=== PATIENT | male | born 1950 | race American Indian/Alaskan Native ===

== ENCOUNTER 2017-11-28 06:21 | Inpatient (IN) | payer BC, MEDICARE ==
[2017-11-28] MEDS ORDERED: Sodium Chloride 0.9% 20 ML IV ONE (07:00)
[2017-11-28] MEDS ORDERED: HEPARIN-NS 5,000 UNITS/500 ML 10,000 UNIT/1,000 ML BAG IV ONE (07:00)
[2017-11-28] MEDS ORDERED: Thrombin Topical 20,000 Intl Units Spray Kit TOP ONE (07:01)
[2017-11-28] MEDS ORDERED: Nitroglycerin 50mg in D5W 50 MG/250 ML BOTTLE IV ONE ×2 (07:32→07:44)
[2017-11-28] MEDS ORDERED: Remifentanil 1 mg/3 ml Vial IV ONE (07:45)
[2017-11-28] MEDS ORDERED: Lactated Ringer's 1,000 ML IV ONE ×3 (07:45→09:25)
[2017-11-28] MEDS ORDERED: Propofol 10 mg/ml Inj (20 ML) ONE (07:48)
[2017-11-28] MEDS ORDERED: Midazolam 2 MG/2 ML VIAL ONE (07:48)
[2017-11-28] MEDS ORDERED: Rocuronium 10 mg/ml (10 ml) ONE (07:49)
[2017-11-28] MEDS ORDERED: Phenylephrine 10 mg/ml Inj ONE (07:49)
[2017-11-28] MEDS ORDERED: ePHEDrine 50 mg/ml Inj ONE (07:49)
[2017-11-28] MEDS ORDERED: ceFAZolin 1 gm in NS 2 GM/200 ML BAG IVPB ONE (07:57)
[2017-11-28] MEDS ORDERED: Neostigmine Methylsulfate 3mg/3ml Syringe IV ONE (09:43)
--- NOTE | 2017-11-28 11:25 | PCM.SURG1 ---
Surgeon's Initial Post Op Note - Surgeon's Notes Surgeon: Dr. Sotelo Contract Design Agent: Dr. Rahman, PGY-3, Joe Mims MS3 Type of Anesthesia: General Endo Anesthesia Administered By: Dr. Mcnulty Pre-Operative Diagnosis: Right Carotid Stenosis Operative Findings: See operative report Post-Operative Diagnosis: Same Operation Performed: Right Carotid Endarterectomy with patch angioplasty Specimen/Specimens Removed: Plaque Estimated Blood Loss: EBL {In ML}: 250 Blood Products Given: N/A Drains Used: Renetta (Red rubber cath ) Post-Op Condition: Good Date of Surgery/Procedure: 11/28/17 Time of Surgery/Procedure: 11:24
[2017-11-28] MEDS ORDERED: Lactated Ringer's 1,000 ML IV PRN (11:26)
[2017-11-28] MEDS ORDERED: HYDROmorphone 0.5 mg/0.5 ml ISec IVP PRN (11:27)
[2017-11-28] MEDS ORDERED: Nitroglycerin 2% Ointment Foilpak UD TOP SCH (11:45)
[2017-11-28] MEDS: HYDROmorphone 0.5 mg/0.5 ml ISec IVP PRN ×2 (12:00→12:24)
[2017-11-28] MEDS ORDERED: Morphine 4 MG/ML VIAL IVP PRN (12:06)
--- NOTE | 2017-11-28 13:59 | CP.PCM.CON ---
<Adan Martinez - Last Filed: 11/28/17 14:57> History of Present Illness - History of Present Illness History of Present Illness: Critical Care Consult Note for Dr. Freeman Reason for consult: s/p Carotid Endarterectomy This is a 67 year old male with PMHx carotid stenosis who presented to the hospital for endarterectomy of the right carotid artery. Patient underwent Right Carotid Endarterectomy with patch angioplasty with 250 cc estimated blood loss. Patient was seen and examined at bedside in the ICU. He reports some discomfort at the site but otherwise has no complaints at this time. PMHx: Carotid stenosis PSHx: Left TKA in 2006, carotid endarterectomy Allergies: NKDA Social: Occasionally smokes a cigar. Occasional alcohol use. Denies drugs. 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 Family Hx: Denies PMD: Dr. Callejas Vascular: Dr. Sotelo Home meds: Plavix 75 mg PO daily, Lipitor 80 mg PO daily Review of Systems - Constitutional Constitutional: absent: Chills, Fever - EENT Eyes: absent: Change in Vision Ears: absent: Decreased Hearing Nose/Mouth/Throat: absent: Nasal Congestion - Cardiovascular Cardiovascular: absent: Chest Pain - Respiratory Respiratory: absent: Dyspnea - Gastrointestinal Gastrointestinal: absent: Abdominal Pain, Nausea, Vomiting - Genitourinary Genitourinary: absent: Dysuria - Musculoskeletal Musculoskeletal: Other (tenderness over the right side of the neck) - Integumentary Integumentary: absent: Rash - Neurological Neurological: absent: Dizziness, Headaches, Weakness - Psychiatric Psychiatric: absent: Anxiety - Endocrine Endocrine: absent: Palpitations Past Patient History - Past Medical History & Family History Past Medical History?: Yes - Past Social History Smoking Status: CIGARS - CARDIAC Hx Circulatory Problems: Yes (CAROTID STENOSIS RIGHT) Hx Hypercholesterolemia: Yes - PULMONARY Hx Respiratory Disorders: No - NEUROLOGICAL Hx Neurological Disorder: No - HEENT Hx HEENT Problems: Yes (GLASSES) - RENAL Hx Chronic Kidney Disease: No - ENDOCRINE/METABOLIC Hx Endocrine Disorders: No - HEMATOLOGICAL/ONCOLOGICAL Hx Blood Disorders: No - INTEGUMENTARY Hx Dermatological Problems: No - MUSCULOSKELETAL/RHEUMATOLOGICAL Hx Musculoskeletal Disorders: Yes Hx Degenerative Joint Disease: Yes - GASTROINTESTINAL Hx Gastrointestinal Disorders: No - GENITOURINARY/GYNECOLOGICAL Hx Genitourinary Disorders: No - PSYCHIATRIC Hx Psychophysiologic Disorder: No - SURGICAL HISTORY Hx Surgeries: Yes Hx Joint Replacement: Yes (KNEE 2006) - ANESTHESIA Hx Anesthesia: Yes Hx Anesthesia Reactions: Yes (SYNCOPE/vomiting) Hx Malignant Hyperthermia: No Has any member of the family had a problem w/ anesthesia?: (UNKNOWN) Meds Allergies/Adverse Reactions: Allergies Allergy/AdvReac Type Severity Reaction Status Date / Time No Known Allergies Allergy Verified 11/14/17 10:25 - Medications Medications: Current Medications Clopidogrel Bisulfate (Plavix) 75 mg PO DAILY [facility] Lactated Ringer's (Lactated Ringer's) 1,000 mls @ 100 mls/hr IV .Q10H PRN PRN Reason: Systolic Blood Pressure Stop: 11/29/17 11:27 Morphine Sulfate (Morphine) 4 mg IVP Q6H PRN PRN Reason: SEVERE 8-10 Nitroglycerin (Nitro-Bid 2% Oint) 1 ea TOP Q4H MELISSA Ondansetron HCl (Zofran Inj) 4 mg IVP Q6H PRN PRN Reason: Nausea/Vomiting Oxycodone/Acetaminophen (Percocet 5/325 Mg Tab) 1 tab PO Q4H PRN PRN Reason: Pain, moderate (4-7) Stop: 12/01/17 11:28 Rosuvastatin Calcium (Crestor) 20 mg PO HS [facility] Physical Exam - Constitutional Appears: No Acute Distress - Head Exam Head Exam: ATRAUMATIC, NORMOCEPHALIC - Eye Exam Eye Exam: EOMI, PERRL - ENT Exam ENT Exam: Mucous Membranes Moist - Neck Exam Additional comments: Neck dressing clean, dry, intact - Respiratory Exam Respiratory Exam: Clear to Auscultation Bilateral, NORMAL BREATHING PATTERN. absent: Rales, Rhonchi, Wheezes - Cardiovascular Exam Cardiovascular Exam: REGULAR RHYTHM, +S1, +S2 - GI/Abdominal Exam GI & Abdominal Exam: Normal Bowel Sounds, Soft. absent: Tenderness - Extremities Exam Extremities exam: Positive for: pedal pulses present. Negative for: pedal edema , tenderness - Neurological Exam Neurological exam: Alert, CN II-XII Intact, Oriented x3 - Psychiatric Exam Psychiatric exam: Normal Affect, Normal Mood - Skin Skin Exam: Dry, Warm Results - Vital Signs Recent Vital Signs: Last Vital Signs Temp 97.7 F 11/28/17 06:30 Pulse 76 11/28/17 06:30 Resp 18 11/28/17 06:30 BP 164/90 H 11/28/17 06:30 Pulse Ox 100 11/28/17 06:30 - Labs Labs: Laboratory Results - last 24 hr 11/28/17 07:05 Blood Type O POSITIVE Antibody Screen Negative Assessment & Plan - Assessment and Plan (Free Text) Assessment: This is a 67 year old male with PMHx carotid stenosis who presents for elective right carotid endarterectomy with patch angioplasty being monitored in the ICU post op. Neuro Awake, verbal Cardio Normotensive NSR on telemetry Plavix 75 mg daily Crestor 20 mg HS Keep patient between normotensive and 180 systolic BP Per surgery, Nitro paste if SBP>180 Per surgery, Lactated Ringers 100 cc/hr prn Hypotension Pulm Saturating well on nasal cannula GI Liquid diet Heme/onc Monitor H/H Monitor for bleeding Prophylaxis No VTE at this time due to post op SCDs Discussed with Dr. Freeman <Emile Freeman - Last Filed: 11/29/17 11:27> Meds - Medications Medications: Current Medications Clopidogrel Bisulfate (Plavix) 75 mg PO DAILY [facility] Nitroglycerin (Nitro-Bid 2% Oint) 1 ea TOP Q4H PRN PRN Reason: Systolic Blood Pressure Ondansetron HCl (Zofran Inj) 4 mg IVP Q6H PRN PRN Reason: Nausea/Vomiting Oxycodone/Acetaminophen (Percocet 5/325 Mg Tab) 1 tab PO Q4H PRN PRN Reason: Pain, moderate (4-7) Stop: 12/01/17 11:28 Last Admin: 11/28/17 18:48 Dose: 1 tab Rosuvastatin Calcium (Crestor) 20 mg PO HS [facility] Last Admin: 11/28/17 21:10 Dose: 20 mg Results - Vital Signs Recent Vital Signs: Last Vital Signs Temp 98.5 F 11/29/17 04:00 Pulse 63 11/29/17 07:01 Resp 12 11/29/17 07:01 BP 142/71 11/29/17 07:01 Pulse Ox 100 11/29/17 07:01 - Labs Result Diagrams: 11/29/17 06:11 11/29/17 06:11 Labs: Laboratory Results - last 24 hr 11/29/17 11/29/17 06:11 06:11 WBC 6.0 RBC 3.76 L Hgb 11.7 L D Hct 34.7 L MCV 92.3 MCH 31.1 H MCHC 33.7 RDW 14.8 H Plt Count 129 L D MPV 8.9 Neut % (Auto) 59.4 Lymph % (Auto) 28.4 [place] % (Auto) 10.9 H Eos % (Auto) 1.1 Baso % (Auto) 0.2 Neut # (Auto) 3.6 Lymph # (Auto) 1.7 [place] # (Auto) 0.7 Eos # (Auto) 0.1 Baso # (Auto) 0.0 Sodium 137 Potassium 3.6 Chloride 102 Carbon Dioxide 27 Anion Gap 12 BUN 6 L Creatinine 0.6 L Est GFR ( Amer) > 60 Est GFR (Non-Af Amer) > 60 Random Glucose 93 Calcium 8.4 L Phosphorus 3.8 Magnesium 1.9 Total Bilirubin 1.3 AST 28 ALT 32 Alkaline Phosphatase 55 Total Protein 6.1 L Albumin 3.1 L Globulin 2.9 Albumin/Globulin Ratio 1.1 Attending/Attestation - Attestation I have personally seen and examined this patient.: Yes I have fully participated in the care of the patient.: Yes I have reviewed all pertinent clinical information: Yes Notes (Text): Today: November The Patient was seen and examined at the bedside, Medical records reviewed, and management issues were discussed and formulated with the house staff. I have reviewed all the relevant clinical, laboratory, hemodynamic, radiographic data and medications Events reviewed Pain issues, skin care, head of the bed elevation, glycemic control were addressed. Agree with above resident's assessment and treatment plans of care as transcribed in Dr. Martinez note.
[2017-11-28] MEDS ORDERED: Nitroglycerin 2% Ointment Foilpak UD TOP PRN (15:53)
[2017-11-28] MEDS: Oxycodone/Acetaminophen 5/325 mg Tab PO PRN (18:48)
--- NOTE | 2017-11-28 19:42 | OP ---
PROCEDURE DATE: 11/28/2017 PREOPERATIVE DIAGNOSIS: Carotid stenosis. POSTOPERATIVE DIAGNOSIS: Carotid stenosis. PROCEDURE CARRIED OUT: Right carotid endarterectomy. SURGEON: Usman Sotelo Jr., MD CHAIR INSPECTOR: Dr. Rahman. ANESTHESIOLOGIST: Mr. Greenberg. INDICATIONS: A 67-year-old male, fairly good health, 80% stenosis right common carotid artery. OPERATIVE FINDINGS: The plaque was like a tooth, a molar, that was extending into the common carotid artery just below the bifurcation. At the end of the procedure, there was excellent flow in the internal carotid artery. There was a blood loss of 250 mL. DESCRIPTION OF PROCEDURE: The patient was given general anesthesia, intravenous antibiotics, Venodyne boots were applied. Exposure was made exposing the common internal and external carotid artery. The hypoglossal nerve was identified. After dissection of the vessels, heparin was given. The vessels were clamped and a [place] shunt was placed into the internal carotid artery. After this had been done, we carried out an endarterectomy but this was primarily an endarterectomy involving the carotid bifurcation barely extending into the internal carotid artery. After this had been done, we had clean endpoints, we placed multiple tacking sutures. We removed the shunt. We placed a bovine pericardial patch and sutured this into position. Blood loss for the procedure was 250 mL. The patient tolerated the procedure well and was awakened in a stable condition moving all fours. The operation carried out was a right carotid endarterectomy. Usman Sotelo Jr., MD Name, M.D. (Insert Co-signer name using "Ctrl + Shift + I" window. Delete the co-signature block if not applicable.) cc: Clay French MD
[2017-11-29 05:51] VITALS: BMI 26.0
[2017-11-29 06:19] LABS: BASO % 0.2 % (0.0-2.0); EOS # 0.1 K/uL (0.0-0.7); EOS % 1.1 % (0.0-4.0); HEMOGLOBIN 11.7 g/dL (12.0-18.0); LYMPH # 1.7 K/uL (1.0-4.3); LYMPH % 28.4 % (20.0-40.0); MEAN CELL VOLUME 92.3 fL (80.0-94.0); MEAN CORPUSCULAR HEMOGLOBIN 31.1 pg (27.0-31.0); MEAN CORPUSCULAR HGB CONC 33.7 g/dL (33.0-37.0); MEAN PLATELET VOLUME 8.9 fL (7.2-11.7); MONO # 0.7 K/uL (0.0-0.8); MONO % 10.9 % (0.0-10.0); NEUT # 3.6 K/uL (1.8-7.0); NEUT % 59.4 % (50.0-75.0); RBC 3.76 Mil/uL (4.40-5.90); RED CELL DISTRIBUTION WIDTH 14.8 % (11.5-14.5)
[2017-11-29 06:37] LABS: ALB/GLOB RATIO 1.1 (1.0-2.1); ALBUMIN 3.1 g/dL (3.5-5.0); ALT/SGPT 32 U/L (21-72); AST/SGOT 28 U/L (17-59); BLOOD UREA NITROGEN 6 mg/dL (9-20); CALCIUM 8.4 mg/dl (8.6-10.4); GFR AFRICAN-AMERICAN > 60; GFR NON-AFRICAN AMERICAN > 60
[2017-11-29] MEDS: Oxycodone/Acetaminophen 5/325 mg Tab PO PRN (07:30)
--- NOTE | 2017-11-29 11:16 | CP.PCM.DIS ---
Provider - Provider Date of Admission: 11/28/17 11:27 Attending physician: Usman Sotelo Jr, MD Time Spent in preparation of Discharge (in minutes): 5 Diagnosis - Discharge Diagnosis (1) Carotid arterial disease Status: Acute Priority: High Hospital Course - Lab Results Lab Results: Most Recent Lab Values WBC 6.0 K/uL (4.8-10.8) 11/29/17 06:11 RBC 3.76 Mil/uL (4.40-5.90) L 11/29/17 06:11 Hgb 11.7 g/dL (12.0-18.0) L D 11/29/17 06:11 Hct 34.7 % (35.0-51.0) L 11/29/17 06:11 MCV 92.3 fL (80.0-94.0) 11/29/17 06:11 MCH 31.1 pg (27.0-31.0) H 11/29/17 06:11 MCHC 33.7 g/dL (33.0-37.0) 11/29/17 06:11 RDW 14.8 % (11.5-14.5) H 11/29/17 06:11 Plt Count 129 K/uL (130-400) L D 11/29/17 06:11 MPV 8.9 fL (7.2-11.7) 11/29/17 06:11 Neut % (Auto) 59.4 % (50.0-75.0) 11/29/17 06:11 Lymph % (Auto) 28.4 % (20.0-40.0) 11/29/17 06:11 [place] % (Auto) 10.9 % (0.0-10.0) H 11/29/17 06:11 Eos % (Auto) 1.1 % (0.0-4.0) 11/29/17 06:11 Baso % (Auto) 0.2 % (0.0-2.0) 11/29/17 06:11 Neut # (Auto) 3.6 K/uL (1.8-7.0) 11/29/17 06:11 Lymph # (Auto) 1.7 K/uL (1.0-4.3) 11/29/17 06:11 [place] # (Auto) 0.7 K/uL (0.0-0.8) 11/29/17 06:11 Eos # (Auto) 0.1 K/uL (0.0-0.7) 11/29/17 06:11 Baso # (Auto) 0.0 K/uL (0.0-0.2) 11/29/17 06:11 Sodium 137 mmol/L (132-148) 11/29/17 06:11 Potassium 3.6 mmol/L (3.6-5.2) 11/29/17 06:11 Chloride 102 mmol/L (98-107) 11/29/17 06:11 Carbon Dioxide 27 mmol/L (22-30) 11/29/17 06:11 Anion Gap 12 (10-20) 11/29/17 06:11 BUN 6 mg/dL (9-20) L 11/29/17 06:11 Creatinine 0.6 mg/dL (0.8-1.5) L 11/29/17 06:11 Est GFR ( Amer) > 60 11/29/17 06:11 Est GFR (Non-Af Amer) > 60 11/29/17 06:11 Random Glucose 93 mg/dL (75-110) 11/29/17 06:11 Calcium 8.4 mg/dl (8.6-10.4) L 11/29/17 06:11 Phosphorus 3.8 mg/dL (2.5-4.5) 11/29/17 06:11 Magnesium 1.9 mg/dL (1.6-2.3) 11/29/17 06:11 Total Bilirubin 1.3 mg/dL (0.2-1.3) 11/29/17 06:11 AST 28 U/L (17-59) 11/29/17 06:11 ALT 32 U/L (21-72) 11/29/17 06:11 Alkaline Phosphatase 55 U/L (38-126) 11/29/17 06:11 Total Protein 6.1 g/dL (6.3-8.3) L 11/29/17 06:11 Albumin 3.1 g/dL (3.5-5.0) L 11/29/17 06:11 Globulin 2.9 gm/dL (2.2-3.9) 11/29/17 06:11 Albumin/Globulin Ratio 1.1 (1.0-2.1) 11/29/17 06:11 Blood Type O POSITIVE 11/28/17 07:05 Antibody Screen Negative 11/28/17 07:05 - Hospital Course Hospital Course: 67M with R common carotid artery stenosis who presented for elective carotid endarterectomy on 11/28/17. Pt was taken to OR for R CEA, he tolerated the procedure well and was monitored in the ICU post-op. This morning POD#1 pt is doing well, with no complaints. Pain is well controlled and pt is neurologically intact. Pt will be DC home with f/u output with Dr. Sotelo as well as PMD & Cardio. Discharge Exam - Head Exam Head Exam: ATRAUMATIC, NORMOCEPHALIC - ENT Exam ENT Exam: Mucous Membranes Moist - Neck Exam Additional comments: R neck incision C/D/I with steristrips in place, no hematoma noted - Respiratory Exam Respiratory Exam: NORMAL BREATHING PATTERN - Cardiovascular Exam Cardiovascular Exam: RRR - GI/Abdominal Exam GI & Abdominal Exam: Soft. absent: Tenderness - Neurological Exam Neurological exam: Alert, CN II-XII Intact, Oriented x3 - Skin Skin Exam: Dry, Warm Discharge Plan - Follow Up Plan Condition: GOOD Disposition: HOME/ ROUTINE
[2017-11-29] MEDS ORDERED: Pneumococcal 23-Valent Vaccine IM ONE (11:20)
--- NOTE | 2017-11-29 11:26 | CP.CCUPN ---
<Adan Martinez - Last Filed: 11/29/17 11:22> CCU Subjective - Physician Review Subjective (Free Text): 11/29/17 11:22 Patient seen and examined. Patient reports no acute complaints this morning and requests advancement of diet. No acute events overnight noted. CCU Objective - Vital Signs / Intake & Output Intake and Output (Last 8hrs): Intake & Output 11/28/17 11/29/17 11/29/17 22:59 06:59 14:59 Intake Total 490 Output Total 1150 1250 0 Balance -660 -1250 0 Weight 176 lb 5.917 oz Intake: Oral 490 Output: Urine 1150 1250 0 Urethral (Gonzales) 1150 1250 0 Other: # Voids Urethral (Gonzales) 1 2 - Physical Exam Head: Positive for: Atraumatic, Normocephalic Pupils: Positive for: PERRL Extroacular Muscles: Positive for: EOMI Conjunctiva: Positive for: Normal Mouth: Positive for: Moist Mucous Membranes Neck: Positive for: Other (dressing clean, dry, intact) Respiratory/Chest: Positive for: Clear to Auscultation. Negative for: Accessory Muscle Use, Wheezes, Rales, Rhonchi Cardiovascular: Positive for: Regular Rate and Rhythm, Normal S1, S2 Abdomen: Positive for: Tenderness, Normal Bowel Sounds. Negative for: Distention Upper Extremity: Positive for: Normal Inspection Lower Extremity: Positive for: Normal Inspection Neurological: Positive for: GCS=15 Skin: Positive for: Warm, Dry Psychiatric: Positive for: Alert, Oriented x 3 - Medications Active Medications: Active Medications Generic Name Dose Route Start Last Admin Trade Name Freq PRN Reason Stop Dose Admin Clopidogrel Bisulfate 75 mg 11/29/17 10:00 Plavix PO DAILY MELISSA Nitroglycerin 1 ea 11/28/17 15:53 Nitro-Bid 2% Oint TOP Q4H PRN Systolic Blood Pressure Ondansetron HCl 4 mg 11/28/17 11:27 Zofran Inj IVP Q6H PRN Nausea/Vomiting Oxycodone/Acetaminophen 1 tab 11/28/17 11:27 11/28/17 18:48 Percocet 5/325 Mg Tab PO 12/01/17 11:28 1 tab Q4H PRN Administration Pain, moderate (4-7) Rosuvastatin Calcium 20 mg 11/28/17 22:00 11/28/17 21:10 Crestor PO 20 mg HS MELISSA Administration - Patient Studies Lab Studies: Lab Studies 11/29/17 11/29/17 Range/Units 06:11 06:11 WBC 6.0 (4.8-10.8) K/uL RBC 3.76 L (4.40-5.90) Mil/uL Hgb 11.7 L D (12.0-18.0) g/dL Hct 34.7 L (35.0-51.0) % MCV 92.3 (80.0-94.0) fL MCH 31.1 H (27.0-31.0) pg MCHC 33.7 (33.0-37.0) g/dL RDW 14.8 H (11.5-14.5) % Plt Count 129 L D (130-400) K/uL MPV 8.9 (7.2-11.7) fL Neut % (Auto) 59.4 (50.0-75.0) % Lymph % (Auto) 28.4 (20.0-40.0) % [place] % (Auto) 10.9 H (0.0-10.0) % Eos % (Auto) 1.1 (0.0-4.0) % Baso % (Auto) 0.2 (0.0-2.0) % Neut # (Auto) 3.6 (1.8-7.0) K/uL Lymph # (Auto) 1.7 (1.0-4.3) K/uL [place] # (Auto) 0.7 (0.0-0.8) K/uL Eos # (Auto) 0.1 (0.0-0.7) K/uL Baso # (Auto) 0.0 (0.0-0.2) K/uL Sodium 137 (132-148) mmol/L Potassium 3.6 (3.6-5.2) mmol/L Chloride 102 (98-107) mmol/L Carbon Dioxide 27 (22-30) mmol/L Anion Gap 12 (10-20) BUN 6 L (9-20) mg/dL Creatinine 0.6 L (0.8-1.5) mg/dL Est GFR ( Amer) > 60 Est GFR (Non-Af Amer) > 60 Random Glucose 93 (75-110) mg/dL Calcium 8.4 L (8.6-10.4) mg/dl Phosphorus 3.8 (2.5-4.5) mg/dL Magnesium 1.9 (1.6-2.3) mg/dL Total Bilirubin 1.3 (0.2-1.3) mg/dL AST 28 (17-59) U/L ALT 32 (21-72) U/L Alkaline Phosphatase 55 (38-126) U/L Total Protein 6.1 L (6.3-8.3) g/dL Albumin 3.1 L (3.5-5.0) g/dL Globulin 2.9 (2.2-3.9) gm/dL Albumin/Globulin Ratio 1.1 (1.0-2.1) Laboratory Results - last 24 hr 11/29/17 11/29/17 06:11 06:11 WBC 6.0 RBC 3.76 L Hgb 11.7 L D Hct 34.7 L MCV 92.3 MCH 31.1 H MCHC 33.7 RDW 14.8 H Plt Count 129 L D MPV 8.9 Neut % (Auto) 59.4 Lymph % (Auto) 28.4 [place] % (Auto) 10.9 H Eos % (Auto) 1.1 Baso % (Auto) 0.2 Neut # (Auto) 3.6 Lymph # (Auto) 1.7 [place] # (Auto) 0.7 Eos # (Auto) 0.1 Baso # (Auto) 0.0 Sodium 137 Potassium 3.6 Chloride 102 Carbon Dioxide 27 Anion Gap 12 BUN 6 L Creatinine 0.6 L Est GFR ( Amer) > 60 Est GFR (Non-Af Amer) > 60 Random Glucose 93 Calcium 8.4 L Phosphorus 3.8 Magnesium 1.9 Total Bilirubin 1.3 AST 28 ALT 32 Alkaline Phosphatase 55 Total Protein 6.1 L Albumin 3.1 L Globulin 2.9 Albumin/Globulin Ratio 1.1 Critical Care Progress Note - Nutrition Nutrition: Nutrition Category Date Time Status Regular Diet [DIET] Diets 11/29/17 Lunch Active Assessment/Plan - Assessment and Plan (Free Text) Assessment: This is a 67 year old male with PMHx carotid stenosis who presents for elective right carotid endarterectomy with patch angioplasty being monitored in the ICU post op. Patient deemed stable for discharge today per vascular surgery. Neuro Awake, verbal Cardio Normotensive NSR on telemetry Plavix 75 mg daily Crestor 20 mg HS Keep patient between normotensive and 180 systolic BP Per surgery, Nitro paste if SBP>180 Per surgery, Lactated Ringers 100 cc/hr prn Hypotension Pulm Saturating well on nasal cannula GI Advanced by surgery to regular diet Heme/onc Monitor H/H Monitor for bleeding Prophylaxis No VTE at this time due to post op SCDs Disposition: Patient is cleared for discharge from vascular surgery standpoint. His Arterial line will be removed. Discussed with Dr. Freeman <Emile Freeman - Last Filed: 11/29/17 12:22> CCU Objective - Vital Signs / Intake & Output Intake and Output (Last 8hrs): Intake & Output 11/28/17 11/29/17 11/29/17 22:59 06:59 14:59 Intake Total 490 Output Total 1150 1250 0 Balance -660 -1250 0 Weight 176 lb 5.917 oz Intake: Oral 490 Output: Urine 1150 1250 0 Urethral (Gonzales) 1150 1250 0 Other: # Voids Urethral (Gonzales) 1 2 - Medications Active Medications: Active Medications Generic Name Dose Route Start Last Admin Trade Name Freq PRN Reason Stop Dose Admin Clopidogrel Bisulfate 75 mg 11/29/17 10:00 Plavix PO DAILY MELISSA Nitroglycerin 1 ea 11/28/17 15:53 Nitro-Bid 2% Oint TOP Q4H PRN Systolic Blood Pressure Ondansetron HCl 4 mg 11/28/17 11:27 Zofran Inj IVP Q6H PRN Nausea/Vomiting Oxycodone/Acetaminophen 1 tab 11/28/17 11:27 11/28/17 18:48 Percocet 5/325 Mg Tab PO 12/01/17 11:28 1 tab Q4H PRN Administration Pain, moderate (4-7) Rosuvastatin Calcium 20 mg 11/28/17 22:00 11/28/17 21:10 Crestor PO 20 mg HS MELISSA Administration - Patient Studies Lab Studies: Lab Studies 11/29/17 11/29/17 Range/Units 06:11 06:11 WBC 6.0 (4.8-10.8) K/uL RBC 3.76 L (4.40-5.90) Mil/uL Hgb 11.7 L D (12.0-18.0) g/dL Hct 34.7 L (35.0-51.0) % MCV 92.3 (80.0-94.0) fL MCH 31.1 H (27.0-31.0) pg MCHC 33.7 (33.0-37.0) g/dL RDW 14.8 H (11.5-14.5) % Plt Count 129 L D (130-400) K/uL MPV 8.9 (7.2-11.7) fL Neut % (Auto) 59.4 (50.0-75.0) % Lymph % (Auto) 28.4 (20.0-40.0) % [place] % (Auto) 10.9 H (0.0-10.0) % Eos % (Auto) 1.1 (0.0-4.0) % Baso % (Auto) 0.2 (0.0-2.0) % Neut # (Auto) 3.6 (1.8-7.0) K/uL Lymph # (Auto) 1.7 (1.0-4.3) K/uL [place] # (Auto) 0.7 (0.0-0.8) K/uL Eos # (Auto) 0.1 (0.0-0.7) K/uL Baso # (Auto) 0.0 (0.0-0.2) K/uL Sodium 137 (132-148) mmol/L Potassium 3.6 (3.6-5.2) mmol/L Chloride 102 (98-107) mmol/L Carbon Dioxide 27 (22-30) mmol/L Anion Gap 12 (10-20) BUN 6 L (9-20) mg/dL Creatinine 0.6 L (0.8-1.5) mg/dL Est GFR ( Amer) > 60 Est GFR (Non-Af Amer) > 60 Random Glucose 93 (75-110) mg/dL Calcium 8.4 L (8.6-10.4) mg/dl Phosphorus 3.8 (2.5-4.5) mg/dL Magnesium 1.9 (1.6-2.3) mg/dL Total Bilirubin 1.3 (0.2-1.3) mg/dL AST 28 (17-59) U/L ALT 32 (21-72) U/L Alkaline Phosphatase 55 (38-126) U/L Total Protein 6.1 L (6.3-8.3) g/dL Albumin 3.1 L (3.5-5.0) g/dL Globulin 2.9 (2.2-3.9) gm/dL Albumin/Globulin Ratio 1.1 (1.0-2.1) Laboratory Results - last 24 hr 11/29/17 11/29/17 06:11 06:11 WBC 6.0 RBC 3.76 L Hgb 11.7 L D Hct 34.7 L MCV 92.3 MCH 31.1 H MCHC 33.7 RDW 14.8 H Plt Count 129 L D MPV 8.9 Neut % (Auto) 59.4 Lymph % (Auto) 28.4 [place] % (Auto) 10.9 H Eos % (Auto) 1.1 Baso % (Auto) 0.2 Neut # (Auto) 3.6 Lymph # (Auto) 1.7 [place] # (Auto) 0.7 Eos # (Auto) 0.1 Baso # (Auto) 0.0 Sodium 137 Potassium 3.6 Chloride 102 Carbon Dioxide 27 Anion Gap 12 BUN 6 L Creatinine 0.6 L Est GFR ( Amer) > 60 Est GFR (Non-Af Amer) > 60 Random Glucose 93 Calcium 8.4 L Phosphorus 3.8 Magnesium 1.9 Total Bilirubin 1.3 AST 28 ALT 32 Alkaline Phosphatase 55 Total Protein 6.1 L Albumin 3.1 L Globulin 2.9 Albumin/Globulin Ratio 1.1 Critical Care Progress Note - Nutrition Nutrition: Nutrition Category Date Time Status Regular Diet [DIET] Diets 11/29/17 Lunch Active Attending/Attestation - Attestation I have personally seen and examined this patient.: Yes I have fully participated in the care of the patient.: Yes I have reviewed all pertinent clinical information: Yes Notes (Text): 11/29/17 12:22 Today: Wednesday, November 29, 2017 The Patient was seen and examined at the bedside, Medical records reviewed, and management issues were discussed and formulated with the house staff. I have reviewed all the relevant clinical, laboratory, hemodynamic, radiographic data and medications Events reviewed Pain issues, skin care, head of the bed elevation, glycemic control were addressed. Agree with above resident's assessment and treatment plans of care as transcribed in Dr. Mahamed hannah.
[2017-11-29 14:44] VITALS: PULSE 84; RESP 20; O2SAT 98
[2017-11-29 14:49] VITALS: BP 135/80
[2017-11-29 15:18] VITALS: TEMP 98
== END 2017-11-29 16:06 | disposition home or self-care (01) | DRG 27 ==
LOC: C.SDS 06:21 → C.9I 11:27
PROVIDERS: ADMIT Surgery Vascular Surgery; ATTEND Surgery Vascular Surgery
PROC: 03UH3KZ Supplement Right Common Carotid Artery with Nonautologous Tissue Substitute, Percutaneous Approach (ICD-10-PCS; 2017-11-28)
PROC: 03CH3ZZ Extirpation of Matter from Right Common Carotid Artery, Percutaneous Approach (ICD-10-PCS; principal; 2017-11-28 07:45)
DX: I65.21 Occlusion and stenosis of right carotid artery (principal); F17.290 Nicotine dependence, other tobacco product, uncomplicated; E78.00 Pure hypercholesterolemia, unspecified; Z96.652 Presence of left artificial knee joint; Z79.01 Long term (current) use of anticoagulants